=== PATIENT | female | born 1960 | race Caucasian/White ===

== ENCOUNTER 2025-01-11 14:09 | Observation (INO) | payer MEDICARE, SELFPAY ==
[2025-01-11] VITALS (14 sets, daily range): BP systolic 124–255; BP diastolic 68–140; BMI 24.6; BMI 23.9
[2025-01-11 11:40] LABS: Hematocrit 42.7 % (37.0-47.0); Hemoglobin 14.6 g/dL (12.0-16.0); Mean Corp Hgb Conc. 34.2 g/dL (33.0-37.0); Mean Corpuscular Volume 83.2 fL (81.0-99.0); Nucleated Red Blood Cells % 0 %; Platelet Count 271 10^3/uL (130-400); Red Cell Dist. Width 13.7 % (11.5-14.5)
--- NOTE | 2025-01-11 12:01 | ED.CVA ---
History of Present Illness
General
Chief Complaint: CVA/TIA Symptoms
Source: patient and family
Exam Limitations: none
Time Seen by Provider: 01/11/25 11:04
Onset of Stroke Symptoms
Onset of symptoms known: Yes
Date of onset of symptoms: 01/11/25
History of Present Illness
History of Present Illness:
65-year-old female left ear pain x 2 days. This morning noted what she calls right facial numbness and facial droop. No other neurologic symptoms. No headache. No visual issues no double vision no speech issues no gait issues. No recent rash.
No recent infectious issues.
Past History
Past History
ED Past Medical History: HTN
ED Past Surgical History: Other (LEEP surgery)
Review of Systems
Review of Systems
All Other Systems: Not applicable
Respiratory: Reports no symptoms
Cardiac: Reports no symptoms
Phy Exam
Physical Exam
Physical Exam:
GENERAL: Alert and oriented in no apparent distress
EYE: Orbits normal. Extraocular muscles intact. Pupils normal
NECK: Supple, no carotid bruit
ENT: Pharynx without erythema
CARDIAC: Regular rate and rhythm without any obvious murmurs.
LUNGS: Clear breath sounds,normal
ABDOMEN: Soft, without focal tenderness or distention
NEUROLOGICAL: Alert and oriented , decreased left forehead crease. Decreased blinking to the left eye. Left facial droop. Light touch intact. Left ear normal. No vesicles. Good upper extremity strength. No drift.
SKIN: Warm and dry, no rash or lesion, no discoloration, skin intact.
MUSCULOSKELETAL: No edema,no deformity.Good color
PSYCH: Normal and appropriate interaction.
Course
Orders/Labs/Results
Orders:
Orders
01/11/25 Breakfast
Regular
At Your Request: Limited Participation
Does patient need a safe tray?: No
01/11/25 11:12
CT Head & Neck Angio W/wo IV Urgent
Comment:
Reason For Exam: Left facial weakness/hypertension
Cardiac Monitoring- Treatment ONCE
IV Insert/Care/Rem.- Treatment PRN
01/11/25 11:13
Electrocardiogram (*1) Stat
Reason for Study: Other
Other Reason for Exam: neuro symptoms
01/11/25 11:20
Basic Metabolic Panel Urgent
Complete Blood Count/With Diff Urgent
Lyme Progressive Urgent
01/11/25 13:27
Labetalol HCl [Trandate] 10 mg IV NOW STA
Prednisone [Deltasone] 50 mg PO NOW STA
01/11/25 13:55
Admit/Transfer Patient As Directed
Co-Sign Provider:
Level of Care: Observation services
Assign to:: Telemetry
Physician / Group: iveth sykes
Diagnosis: 7th nerve palsy
Reason for Telemetry: Other
Other Reason for Telemetry: hypertensive urgency
Date to Stop Telemetry: 01/13/25
Time to Stop Telemetry: 11:00
01/11/25 13:56
Code Status As Directed
Resuscitation Status: Full Code
PRN Pain Medication Management As Directed
May give lesser potent ordered pain med per pt: Yes
preference::
Protocol:: Medication orders for pain may be administered in a
manner that supports deferring to patient preference
when the pt is:
- Requesting an ordered lesser potent pain medication.
Least to most potent pain medications are defined
as: acetaminophen < NSAID < tramadol < opioids
(morphine, oxycodone, hydromorphone).
- Requesting a lesser dose of the same medication IF
ORDERED.
- Requesting a less intrusive route of administration
if both routes are prescribed by the provider (PO <
IV).
01/11/25 16:08
Acetaminophen [Tylenol] 650 mg PO Q4HPRN PRN
Bisacodyl [Dulcolax] 10 mg RECTAL [id number] PRN
Docusate W/Senna [Senokot-S] 1 tablet PO BIDPRN PRN
Polyethylene Glycol Powder [Miralax] 17 grams PO DAILYPRN PRN
01/11/25 16:08
Activity As Directed
Activity Level: As Tolerated
Neurological Checks As Directed
Frequency: Per unit guidelines
Pneumatic Compression Sleeves As Directed
Type: Knee high
Vital Signs As Directed
Frequency: Per unit guidelines
DX Deep Vein Thrombosis Video Routine
01/12/25 07:41
Cardiovascular Evaluation IN AM
01/12/25 08:00
Losartan [Cozaar] 100 mg PO DAILY
Prednisone [Deltasone] 60 mg PO DAILY
Abnormal Lab Results
01/11/25
11:20
MPV 10.5 H fL
(7.4-10.4)
Glucose 118 H mg/dl
(70-99)
01/11/25 11:20
01/11/25 11:20
Vital Signs
Initial and Last Documented VS:
Initial Vital Signs
Temp Pulse Resp BP Pulse Ox
97.6 F 109 16 196/140 98
01/11/25 11:01 01/11/25 11:01 01/11/25 11:01 01/11/25 11:01 01/11/25 11:01
Last Documented Vital Signs
Temp Pulse Resp BP Pulse Ox
99.2 F 76 16 184/86 93
01/12/25 11:01/12/25 11:01/12/25 11:25 01/12/25 11:25 01/12/25 11:25
MDM/Problems Addressed
Differential Diagnosis Includes:
Clinically this is a left 7th cranial nerve palsy. She has some subjective sensory changes to the right cheek however these are subjective. Motor exam is absolutely left facial with involvement of the left forehead decreased blinking to the left
eye. Clinically left 7th cranial nerve. Workup in progress. Lyme titer pending.
*Radiology
Radiology exam reviewed: radiology read reviewed (CTA is negative)
*Pulse Oximetry
SaO2: 98
Oxygen Mode of Delivery: Room air
Patient hypoxic: no
*Critical Care Note
Total Time (30-74mins, 75-104mins- exclusive of procedures): Not Applicable
Update Note
Update Note:
I did initially thought of possible outpatient management of a left 7th cranial nerve palsy. Prednisone. Plus minus antivirals. However patient has remained significantly hypertensive. Initially had come down some but blood pressure is back up
especially systolic. Given the level of hypertension combined with the left 7th cranial nerve palsy combined with right facial paresthesias warrants inpatient management
ED Attending Note
-
Portions of this chart may have been created with voice recognition software.� Occasional wrong word or��sound alike� substitutions may have occurred due to the inherent limitations of voice recognition software.
Discharge Plan
Departure
Patient Disposition: Admit
Date of Disposition: 01/11/25
Time of Disposition: 13:28
Presentation/result/management discussed w/ accepting MD/DO: Hospitalist
Discharge Problem:
Hypertensive urgency, Left 7th cranial nerve palsy
Interventions
Interventions:
*Risk Screen - Suicide Last Done: 01/11/25 10:58
*General Assessment Last Done: 01/11/25 11:31
*Neglect/Abuse Screening Last Done: 01/11/25 10:58
*ED- Fall Risk Assessment Last Done: 01/11/25 16:08
*ED COVID-19 Vaccine History Last Done: 01/11/25 11:31
*ED Influenza Vaccine History Last Done: 01/11/25 11:31
*Nursing Disposition Last Done: 01/11/25 16:08
ED- Pulmonary Assessment Last Done: 01/11/25 11:33
ED- Neurological Assessment Last Done: 01/11/25 11:33
ED- Cardiac Assessment Last Done: 01/11/25 11:33
ED Swallowing Screen Last Done: 01/11/25 14:00
Discharge Date and Time
Discharge Date/Time: 01/11/25 16:09
[2025-01-11 12:16] LABS: Blood Urea Nitrogen 12 mg/dl (7-17); Calcium 10.0 mg/dl (8.4-10.2); Carbon Dioxide 25 mmol/L (22-30); Chloride 105 mmol/L (98-107); Estimated Creatinine Clearance 71 ml/min; Glucose 118 mg/dl (70-99); Potassium 3.8 mmol/L (3.5-5.1); Sodium 137 mmol/L (135-145); eGFR > 60.00
--- NOTE | 2025-01-11 13:30 | HPS.HSE ---
Addendum entered and electronically signed by Eloy Saini MD 01/11/25 20:58:
Vitamin B12 came back very low, will order IM injections.
Addendum entered and electronically signed by Eloy Saini MD 01/11/25 15:03:
Discussed with neuro, no MRI needed.
patient�started on prednisone 60 mg daily for 1 week and , valacyclovir�1000 mg three times daily for one week, PRN artificial tears.
Addendum entered and electronically signed by Eloy Saini MD 01/11/25 14:29:
Attending addendum:
I saw and evaluated the patient. I reviewed the SCRAP KETTLE TENDER�s note and agree with findings and plan as documented in the SCRAP KETTLE TENDER�s note.� Nata is 65 years old with a history of hypertension, has recent left otitis externa, came to the ER with facial droop,
facial numbness, involving left eye, not able to close left eye opening.
Patient seen and examined at bedside, denies any chest pain or shortness of breath, no abdominal pain, no nausea, no vomiting, no diarrhea or constipation.
CTA head and neck unremarkable, start prednisone, will be admitted under hospitalist.
Physical exam:
GENERAL : Patient is awake, alert, oriented x3
HEENT: Nonicteric sclerae, PERRLA, EOMI. Oropharynx clear. Moist mucous membranes. Conjunctivae appear well perfused.
CHEST: Chest wall is nontender.
HEART: Regular rate and rhythm without murmurs.
LUNGS: Clear to auscultation bilaterally.
ABDOMEN: Soft, positive bowel sounds, nontender, no organomegaly.
RECTAL: Deferred.
MUSCLES/EXTREMITIES: No abnormal range of motion, no swelling.SKIN: No rash, no excessive bruising, petechiae, or purpura.
NEUROLOGIC: Left facial droop, consulted close left eye.
Assessment/plan:
Left facial droop, most likely left Telles's palsy after left ear infection
CTA head and neck shows no acute finding
Admit to telemetry bed.
Frequent neurocheck.
Allow permissive hypertension (blood pressure was elevated in the ER, continue with losartan 50mg).
Neurology consult.
MRI brain (if confirmed by neurology).� Patient also claustrophobic
Check hemoglobin A1c, fasting lipid panel.
PT/OT consult.
Social service for discharge.�
Continue prednisone 50 mg
History of hypertension with hypertensive urgency
Received labetalol in the ER.
Continue with home dose 50 mg
CODE STATUS: Full code
DVT prophylaxis: SCDS
Diet: Regular diet
Disposition: Admit under hospitalist, neurology consult.
Total time spent on today�s encounter was 75 minutes which included time spent in counseling the patient/family regarding diagnosis and treatment plan as listed above, goals of care, and symptom management. Case was discussed with nursing staff,
specialists, and care coordinators/case management. All labs and imaging personally reviewed by me. Remainder the time spent in detailed review of previous records, lab data, imaging, and other medical provider documentation.
Original Note:
Family Physician
-
Family Physician: Kavitha Ayers
Chief Complaint
-
facial numbness and left facial droop
History of Present Illness
65-year-old female with PMH for HTN presented with left ear pain x 2 days. This morning noted what she calls facial numbness around her mouth and facial droop.She cannot blink with her left eye but she is able to close the left eye. she stated
dizzy. denied JUSTICE or syncope. denied fever, chills, chest pain, sob. denied abdominal pain,n,v,d. denied dysuria or hematuria. patient stated stuffy nose and cough last week. she took Robitussin and the symptoms resolved.
Patient complained of dizzy. Patient denied any headache, fever, chills, chest pain, short of breath. Patient denied any abdominal pain, nausea, vomiting or diarrhea. Patient denied dysuria or hematuria.
He takes 50 of losartan at home. Her losartan was increased to 100 mg for her elevated blood pressure. She has not started 100 yet.
Upon arrival she was noted hypertensive, as well as concern for several nerve palsy. Patient received a dose of labetalol, prednisone in ER. Admitting for further management
Medical History
Past Medical History
Past Medical History: Reports Other
Additional Past Medical History:
Hypertension
Past Surgical History: Reports Other
Additional Past Surgical History:
LEEP surgery
Social History
Tobacco: Non-smoker
Alcohol: None
Drug: None
Living: With Family
Family History
Family History: Not pertinent
Allergies / Home Medications
Allergies reflects when Allergies were last updated in [facility].
Home Medications with original date entered in [facility]
Allergy/Medication List:
Allergies
Allergy/AdvReac Type Severity Reaction Status Date / Time
No Known Allergies Allergy Verified 01/11/25 11:01
Home Medications
losartan 50 mg tablet 50 mg PO DAILY 01/11/25
Review of Systems
-
Constitutional: Reports No Symptoms
EENT: Reports No Symptoms
Respiratory: Reports No Symptoms
Cardiac: Reports No Symptoms
Abdomen/GI: Reports No Symptoms
: Reports No Symptoms
Musculoskeletal: Reports No Symptoms
Skin: Reports No Symptoms
Neurological: Reports Dizzy, Numbness and Other (Facial droop)
Endocrine: Reports No Symptoms
Hematologic/Lymphatic: Reports No Symptoms
Psych: Reports No Symptoms
Physical Exam
Vital Signs
Vital Signs
Temp Pulse Resp BP Pulse Ox
97.6 F 75 21 139/106 98
01/11/25 11:01 01/11/25 11:30 01/11/25 11:30 01/11/25 11:10 01/11/25 12:04
Physical Exam
General: Well Developed, Well Nourished and No Apparent Distress
HEENT: NormoCephalic, Moist mucous membranes and Atraumatic
Respiratory: Clear
Cardiac: S1/S2 and Regular Rhythm; No Murmur or Rub
GI: Soft, Non Tender, Non Distended and Normal Bowel Sounds; No Organomegaly
Rectal: Deferred by Provider
Musculoskeletal: No Clubbing, No Cyanosis and No Edema
Skin: No Rash
Neuro: Nonfocal/grossly intact and Facial Droop
Laboratory Results
-
01/11/25 11:20
01/11/25 11:20
Data Reviewed
-
CT Scan: Report Reviewed by me
Lab Data: Labs Reviewed by me
Impression/Plan
-
#hypertensive emergency
-head neck CTA with No evidence of large vessel occlusion, or arterial dissection. No intracranial abnormality appreciated.
-losartan 50mg continued
-ctm
#left facial numbness/droop concern for 7th nerve palsy vs TIA
-Continue prednisone
-asa, statin
-obtain a1c, lipid profile
-obtain MRI of head
-neurology consulted
#DVT prophylaxis
- SCDs
#CODE STATUS
- Full code
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
[2025-01-11] MEDS: TRANDATE 10 MG IV (15:23)
[2025-01-11] MEDS: DELTASONE 50 MG PO (15:23)
[2025-01-11] MEDS: APRESOLINE 10 MG IV (16:15)
[2025-01-11] MEDS: COZAAR PO (17:27)
[2025-01-11] MEDS: ZOFRAN 4 MG IV (17:42)
[2025-01-11] MEDS: VALTREX 1000 MG PO ×2 (17:43→21:08)
[2025-01-11] MEDS: REFRESH EYE DROPS (PF) 1 DROPS OPHTH ×2 (17:43→19:28)
[2025-01-11 20:09] LABS: TSH 1.39 uIU/ml (0.47-4.68)
[2025-01-11 20:45] LABS: Folate 7.4 ng/ml (2.76-20); Vitamin B12 190 pg/ml (239-931)
[2025-01-12 03:46] VITALS: BP 152/75
[2025-01-12 06:00] VITALS: BMI 23.8
[2025-01-12 07:30] VITALS: BP 177/85
[2025-01-12] MEDS: CYANOCOBALAMIN 1000 MCG IM (08:16)
[2025-01-12] MEDS: VALTREX 1000 MG PO (08:16)
[2025-01-12] MEDS: COZAAR 100 MG PO (08:16)
[2025-01-12] MEDS: DELTASONE 60 MG PO (08:16)
[2025-01-12 08:41] LABS: HDL Cholesterol 106 mg/dl; LDL Cholesterol, Calculated 111 mg/dl; Very Low Density Lipoprotein 9 mg/dl (0-30)
[2025-01-12] MEDS: ORETIC 12.5 MG PO (09:38)
[2025-01-12 09:39] VITALS: BP 176/86
[2025-01-12 10:31] LABS: Glycohemoglobin (HgbA1c) 5.5 % (4.0-5.9)
[2025-01-12 11:25] VITALS: BP 184/86
--- NOTE | 2025-01-12 11:41 | CM ---
Patient will discharge home today. Patient seen bedside, initial assessment completed. Patient is a 65-year-old female with PMH for HTN presented with facial numbness and left facial droop.
Patient resides w/ son in a 2STH, no steps to enter. 10 steps to the second level. Patient is independent in all areas, no DME reported.
Address, point of contact and insurance verified
PCP: Kavitha Ayers
Pharmacy: [facility]
Patient admitted under obs services. FRIEDMAN form verbally reviewed, copy provided, copy on chart
Plan: Home, no needs. Daughter will transport
--- NOTE | 2025-01-12 13:10 | W.DCSUMMARY ---
Discharge Summary
Discharge Data
Date of Admission: 01/11/25
Date of Discharge: 01/12/25
-
Pending Results: No
Hospital Course
65-year-old female with PMH for HTN presented with left ear pain x 2 days
Presents with facial numbness around the mouth and facial droop with associated left ear pain x 2 days previous. He cannot blink left eye but is able to close the left eye. 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 Started on
steroids and valacyclovir. Neurology has recommended 60 mg x 1 week taper. Will need continued outpatient neurology follow-up ophthalmology follow-up also will need to take valacyclovir 1000 mg 3 times a day x 1 week. Follow-up with [facility] with PCP
after that to follow liver function.
Artificial tears and wear an eye patch to protect cornea
CT Brain
IMPRESSION:
1. No evidence of large vessel occlusion, or arterial dissection.
2. No intracranial abnormality appreciated.
Prednisone: 60mg x1d, 50mg x1d, 40mg x 1d, 30mg x1d, 20mg x1d, 10mg x1d
Losartan increased to 100mg daily from 50mg daily
Started on HCTZ 12.5mg
Keep a blood pressure log. Take the blood pressure twice a day, morning and night for 2weeks. Update pcp/family medical provider. Blood pressure might flatucaute with being on steroids. Antihypertensives were adjusted to hgiher doses and started on
new one. May need to scale back on antihypertensives if recommend by PCP/family medical provider as steroids are tapered off.
Seen on the day of discharge. No new complaints. No acute overnight events.
Continues to ask his that he symptoms will go away. I told her for majority of the patients they do however Telles's palsy can persist on for months and years/lifelong
She will need continued outpatient neurology support
Reviewed blood pressure log and has steroid tapering decreases her blood pressure might improve as well and she may not require as much antihypertensives
NAD
Scleral Anicteric
MMM, left facial droop
No JVD
CTABL
RRR, S1/S2
Soft, NT, ND, BS+
Warm, Dry
AAOx3
Calm
More than 30 minutes spent in discharge including
Final examination of the patient
Summarizing hospital stay
Instructions for continuing care to all relevant caregivers
Preparation of discharge records, prescriptions, and referral forms
Total time spent (in minutes): 33mins
Discharge Plan
-
Patient Disposition: Home (Routine Discharge)
Discharge Diagnosis/Procedures: [place] Palsy
Condition: Good
Diet: As tolerated
Activity: As tolerated
Blood Work: CMP with PCP/Family medical provider
Activity Restrictions/Additional Instructions:
Presents with facial numbness around the mouth and facial droop with associated left ear pain x 2 days previous. He cannot blink left eye but is able to close the left eye. 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 Started on
steroids and valacyclovir. Neurology has recommended 60 mg x 1 week taper. Will need continued outpatient neurology follow-up ophthalmology follow-up also will need to take valacyclovir 1000 mg 3 times a day x 1 week. Follow-up with [facility] with PCP
after that to follow liver function.
Artificial tears and wear an eye patch to protect cornea
CT Brain
IMPRESSION:
1. No evidence of large vessel occlusion, or arterial dissection.
2. No intracranial abnormality appreciated.
Prednisone: 60mg x1d, 50mg x1d, 40mg x 1d, 30mg x1d, 20mg x1d, 10mg x1d
Losartan increased to 100mg daily from 50mg daily
Started on HCTZ 12.5mg
Keep a blood pressure log. Take the blood pressure twice a day, morning and night for 2weeks. Update pcp/family medical provider. Blood pressure might flat[place]ute with being on steroids. Antihypertensives were adjusted to hgiher doses and started on
new one. May need to scale back on antihypertensives if recommend by PCP/family medical provider as steroids are tapered off.
Referrals:
Magy Canas NP [[facility], Neurology] - in one week
Kavitha Ayers CRNP [Family Provider, General]
Prescriptions:
New
losartan 100 mg Tablet
100 mg PO DAILY Qty: 30 0RF
Refresh Classic (PF) 1.4-0.6 % Dropperette
1 drp ophthalmic (eye) QIDPRN PRN (Reason: dry eye) Qty: 50 0RF
hydrochlorothiazide 12.5 mg Tablet
12.5 mg PO DAILY Qty: 30 0RF
prednisone 10 mg tablet
See Taper PO DIRECTED Qty: 15 0RF
Taper: Prednisone DC Starting at 50 mg daily
50 mg Daily for 1 Day and 0 Hour
40 mg Daily for 1 Day and 0 Hour
30 mg Daily for 1 Day and 0 Hour
20 mg Daily for 1 Day and 0 Hour
10 mg Daily for 1 Day and 0 Hour
Rx Instructions:
Start 50mg tapering dose on 01/13/25
valacyclovir [Valtrex] 1 gram tablet
1,000 mg PO Q8H 7 Days Qty: 21 0RF
Discontinued
losartan 50 mg tablet
50 mg PO DAILY
Discharge Orders:
Discharge Patient (As Directed); Ordered 01/12/25
Ordered By: Vincenzo Joshi
Discharge Date and Time
Discharge Date/Time: 01/12/25 11:45
Print Language: IRISH
== END 2025-01-12 11:45 | disposition home or self-care (01) ==
LOC: 4 EAST ACU 14:09
PROVIDERS: Psychiatry & Neurology Neurology; Registered Nurse; ADMITTING PHYSICIAN Student in an Organized Health Care Education/Training Program; ATTENDING PHYSICIAN Hospitalist; EMERGENCY PHYSICIAN Emergency Medicine; FAMILY PHYSICIAN Nurse Practitioner Adult Health
DX: G51.0 Bell's palsy (principal); I16.1 Hypertensive emergency; Z79.52 Long term (current) use of systemic steroids; Z79.899 Other long term (current) drug therapy; I11.9 Hypertensive heart disease without heart failure
CPT/HCPCS: 70496; 70498; 80048; 80061; 82607; 82746; 83036; 84443; 85025; 86038; 86618; 86780; 87476; 93005; 96374; 99285; Q9967

== ENCOUNTER 2025-01-18 04:05 | Emergency (ER) | payer MEDICARE, SELFPAY ==
[2025-01-18] VITALS (13 sets, daily range): BP systolic 174–242; BP diastolic 89–125; BMI 24.5
[2025-01-18] MEDS: TYLENOL 1000 MG PO (05:47)
--- NOTE | 2025-01-18 06:44 | ED.GENMED ---
History of Present Illness
General
Chief Complaint: Blood Pressure Problem
Time Seen by Provider: 01/18/25 06:09
History of Present Illness
History of Present Illness:
65-year-old female with history of hypertension presenting to the emergency department for left-sided ear pain and high blood pressure. Patient recently seen in the hospital on 01/11 for new left-sided Telles's palsy. Patient started on antivirals
and steroids. At that time, patient also noted to have profoundly high blood pressure. Patient was admitted for hypertensive urgency and medications were adjusted. Patient's losartan increased to 100 mg daily, as well as hydrochlorothiazide 12.5
mg daily. Notes that she has overall seen improvement of her blood pressures since discharge. However, when she woke up this morning, had left ear pain. She checked her blood pressure and noted it was elevated which prompted her to come to the
hospital. Denies headache, visual changes, weakness, numbness, chest pain, difficulty breathing. Reports overall improvement in her Telles's palsy since starting medications, however the ear pain is new. Denies fever. Denies additional acute
medical complaints
Past History
Past History
ED Past Medical History: HTN
ED Past Surgical History: Other (LEEP surgery)
Phy Exam
Physical Exam
Physical Exam:
General: Well-appearing, no clinical signs of dehydration, nontoxic and in no acute distress
HEENT: protecting airway, normal TMs bilaterally. No tenderness to the tragus and the mastoid of the left ear
Neck: appears supple
CV: Normal heart rate, regular rhythm
Resp: No accessory muscle use, no increased work of breathing, lungs clear to auscultation bilaterally
Abd: No distention
Extremities: No deformities, no swelling
Neuro: alert, no focal neurologic deficit
: deferred
Rectal: deferred
Psych: Normal affect
Skin: Intact
Course
Orders/Labs/Results
Orders:
Orders
01/18/25 05:46
Acetaminophen [Tylenol] 1,000 mg .ROUTE .[facility]
01/18/25 05:47
Acetaminophen [Tylenol] 1,000 mg PO NOW STA
01/18/25 06:38
Ketorolac [Toradol] 15 mg IV NOW STA
Labetalol HCl [Trandate] 20 mg IV NOW STA
01/18/25 06:47
Hydrochlorothiazide [Oretic] 25 mg PO NOW STA
Ketorolac [Toradol] 15 mg IM NOW STA
01/18/25 06:55
Losartan [Cozaar] 100 mg PO NOW STA
01/18/25 09:06
Complete Blood Count/With Diff Urgent
Comprehensive Metabolic Panel Urgent
01/18/25 09:11
Gabapentin [Neurontin] 100 mg PO NOW STA
Labetalol HCl [Trandate] 20 mg IV NOW STA
01/18/25 10:15
Potassium Chloride [KCl] 40 meq PO NOW STA
Abnormal Lab Results
01/18/25
09:06
Absolute Lymphs (auto) 4.2 H 10^3/uL
(1.2-3.4)
Absolute Monos (auto) 0.8 H 10^3/uL
(0.1-0.6)
Sodium 131 L mmol/L
(135-145)
Potassium 2.9 L mmol/L
(3.5-5.1)
Chloride 94 L mmol/L
(98-107)
Glucose 103 H mg/dl
(70-99)
01/18/25 09:06
01/18/25 09:06
Vital Signs
Initial and Last Documented VS:
Initial Vital Signs
Temp Pulse BP Pulse Ox
97.6 F 85 208/125 98
01/18/25 04:13 01/18/25 04:13 01/18/25 04:13 01/18/25 04:13
Last Documented Vital Signs
Temp Pulse Resp BP Pulse Ox
97.6 F 60 20 174/89 96
01/18/25 04:13 01/18/25 09:30 01/18/25 09:30 01/18/25 09:30 01/18/25 09:00
MDM/Problems Addressed
MDM/Problems Addressed:
65-year-old female with history of hypertension presenting to the emergency department with left ear pain and high blood pressure. Vital signs on arrival significant for high blood pressure.
On exam, patient is resting comfortably, no acute distress. Unremarkable examination with the exception of known facial partial paralysis, consistent with Telles's palsy. No abnormality to the ear. No signs of infection. No concern for
mastoiditis. Suspect neuropathic pain from known Telles's palsy. Blood pressure is markedly elevated. However, otherwise hemodynamically stable, unremarkable neurologic exam. Without present concern for hypertensive urgency or emergency, recent
admission for blood pressure with blood pressure medication adjustment. She suspects that her blood pressure is elevated from pain which is possible, however blood pressure is very elevated. Patient is apprehensive about any IV medications, has
anxiety over IV. Did recommend IV labetalol, however patient would prefer to try her oral medications. Will give oral medications and pain control and reassess
09:10 -patient's blood pressure is still markedly elevated. Pain has overall improved. Will administer IV labetalol.
10:10 -patient's blood pressure has improved. Labs relatively unremarkable with exception of mild hypokalemia. Will administer oral potassium. On reassessment patient remained stable. Feel stable for discharge. Advised patient start
hydrochlorothiazide at 25 mg daily, notes that her doctor had discussed already going up on this medication. Will send prescription for ibuprofen for pain, as well as gabapentin for neuropathic pain. Otherwise at this time feel patient is stable
for discharge, however with close outpatient primary care follow-up. Return precautions discussed and patient verbalized under
*Pulse Oximetry
SaO2: 98
Oxygen Mode of Delivery: Room air
Patient hypoxic: no
*Critical Care Note
Total Time (30-74mins, 75-104mins- exclusive of procedures): Not Applicable
ED Attending Note
-
Portions of this chart may have been created with voice recognition software.� Occasional wrong word or��sound alike� substitutions may have occurred due to the inherent limitations of voice recognition software.
Discharge Plan
Departure
Prescriptions:
No Action
losartan 100 mg Tablet
100 mg PO DAILY Qty: 30 0RF
Refresh Classic (PF) 1.4-0.6 % Dropperette
1 drp ophthalmic (eye) QIDPRN PRN (Reason: dry eye) Qty: 50 0RF
hydrochlorothiazide 12.5 mg Tablet
12.5 mg PO DAILY Qty: 30 0RF
prednisone 10 mg tablet
See Taper PO DIRECTED Qty: 15 0RF
Taper: Prednisone DC Starting at 50 mg daily
50 mg Daily for 1 Day and 0 Hour
40 mg Daily for 1 Day and 0 Hour
30 mg Daily for 1 Day and 0 Hour
20 mg Daily for 1 Day and 0 Hour
10 mg Daily for 1 Day and 0 Hour
Rx Instructions:
Start 50mg tapering dose on 01/13/25
valacyclovir [Valtrex] 1 gram tablet
1,000 mg PO Q8H 7 Days Qty: 21 0RF
Referrals:
Kavitha Ayers CRNP [Family Provider, General]
Interventions
Interventions:
*Risk Screen - Suicide Last Done: 01/18/25 05:52
*General Assessment Last Done: 01/18/25 05:52
*Neglect/Abuse Screening Last Done: 01/18/25 05:53
*ED- Fall Risk Assessment Last Done: 01/18/25 04:21
*ED COVID-19 Vaccine History Last Done: 01/18/25 04:21
*ED Influenza Vaccine History Last Done: 01/18/25 04:21
ED- Cardiac Assessment Last Done: 01/18/25 05:50
ED- Neurological Assessment Last Done: 01/18/25 05:50
ED- Pulmonary Assessment Last Done: 01/18/25 05:50
Discharge Date and Time
Print Language: [place]
--- NOTE | 2025-01-18 06:45 | EDRN ---
patient stating she does not feel comfortable receiving an IV and would rather try taking oral medication first. Keny notified.
[2025-01-18] MEDS: TORADOL 15 MG IM (07:19)
[2025-01-18] MEDS: COZAAR 100 MG PO (07:19)
[2025-01-18] MEDS: ORETIC 25 MG PO (07:22)
[2025-01-18 09:20] LABS: Hematocrit 43.7 % (37.0-47.0); Hemoglobin 14.8 g/dL (12.0-16.0); Mean Corp Hgb Conc. 33.9 g/dL (33.0-37.0); Mean Corpuscular Volume 82.8 fL (81.0-99.0); Nucleated Red Blood Cells % 0 %; Platelet Count 310 10^3/uL (130-400); Red Cell Dist. Width 13.5 % (11.5-14.5)
[2025-01-18] MEDS: NEURONTIN 100 MG PO (09:20)
[2025-01-18] MEDS: TRANDATE 20 MG IV (09:20)
[2025-01-18 09:39] LABS: ALT (SGPT) 18 U/L (0-35); AST (SGOT) 17 U/L (14-36); Albumin 4.5 g/dl (3.5-5.0); Alkaline Phosphatase 73 U/L (38-126); Blood Urea Nitrogen 12 mg/dl (7-17); Calcium 10.0 mg/dl (8.4-10.2); Carbon Dioxide 30 mmol/L (22-30); Chloride 94 mmol/L (98-107); Estimated Creatinine Clearance 71 ml/min; Glucose 103 mg/dl (70-99); Sodium 131 mmol/L (135-145); Total Protein 7.3 g/dl (6.3-8.2); eGFR > 60.00
[2025-01-18 09:44] LABS: Potassium 2.9 mmol/L (3.5-5.1)
[2025-01-18] MEDS: KCL 40 MEQ PO (10:23)
== END 2025-01-18 10:38 | disposition home or self-care (01) ==
LOC: EMR 04:05
PROVIDERS: EMERGENCY PHYSICIAN Student in an Organized Health Care Education/Training Program; FAMILY PHYSICIAN Nurse Practitioner Adult Health
DX: I10 Essential (primary) hypertension (principal); H92.02 Otalgia, left ear; G51.0 Bell's palsy; Z79.899 Other long term (current) drug therapy; E87.6 Hypokalemia
CPT/HCPCS: 99284; 96374; 96372; 80053; 85025